=== PATIENT | male | born 1935 | race Caucasian/White ===

== ENCOUNTER 2018-01-19 07:47 | Emergency (ER) | payer OTHER, MEDICARE ==
[~2018-01-19] VITALS: Ht 162.6 cm; Wt 76.6 kg
[~2018-01-19 07:47] MED LIST: AMBIEN5 MG PO; ANTIVERT25 MG PO; ASPIR-LOW81 M1 PO; ASPIRIN BUFFER325 M1 PO; ASPIRIN81 M1 PO; ASPIRIN81 M2 PO; ATORVASTATIN CA20 MG PO; AUGMENTIN875 MG PO; CATAPRES0.1 MG PO; DILAUDID2 MG PO; DOXYCYCLINE HY100 MG PO; HYDROCHLOROTH12.5 M3 PO; LEVOXYL25 MCG PO; LEVOXYL50 MCG PO; LOTENSIN10 MG PO; LOTENSIN20 M2 PO; NORVASC10 MG PO; NORVASC5 MG PO; PERCOCET 5/31 TABLET PO; PROAIR HFA8.5 GM IH; SKELAXIN800 MG PO; TENORMIN25 MG PO; TENORMIN50 MG PO; Tenormin PO; VALIUM2 MG PO; VALIUM5 MG PO; XARELTO20 MG PO; ZOCOR10 MG PO; ZOFRAN4 MG PO; Zocor PO
[2018-01-19] MEDS ORDERED: ZYRTEC10 M2 PO (09:01)
[2018-01-19] MEDS ORDERED: ATARAX10 MG PO (09:01)
[2018-01-19 09:12] VITALS: BP 155/72
== END 2018-01-19 09:12 | disposition home or self-care (01) ==
LOC: EME 07:47
DX: L30.9 Dermatitis, unspecified (principal); L29.9 Pruritus, unspecified; L53.9 Erythematous condition, unspecified; Z87.2 Personal history of diseases of the skin and subcutaneous tissue; I10 Essential (primary) hypertension; E78.5 Hyperlipidemia, unspecified; J45.909 Unspecified asthma, uncomplicated; I25.2 Old myocardial infarction; F32.9 Major depressive disorder, single episode, unspecified; Z79.82 Long term (current) use of aspirin; Z95.5 Presence of coronary angioplasty implant and graft; Z90.49 Acquired absence of other specified parts of digestive tract; Z88.5 Allergy status to narcotic agent; J30.81 Allergic rhinitis due to animal (cat) (dog) hair and dander
CPT/HCPCS: 99281; 99283

== ENCOUNTER 2018-05-13 09:48 | Emergency (ER) | payer OTHER ==
[~2018-05-13] VITALS: Ht 162.6 cm; Wt 75.2 kg
[~2018-05-13 09:48] MED LIST changes: +ATARAX10 MG PO; +ZYRTEC10 M2 PO
[2018-05-13 10:32] LABS: HEMATOCRIT 38.3 % (38.0-50.0); MCHC 33.9 G/DL (30.0-36.0); MCV 88.2 FL (86-99); PLATELET COUNT 204 K/uL (156-360); RBC DIS.WIDTH-CV 13.7 % (11.8-14.6); RBC DIS.WIDTH-SD 43.9 % (39-53); RED BLOOD COUNT 4.34 M/uL (4.00-5.50); WHITE BLOOD COUNT 5.9 K/uL (4.1-10.2)
[2018-05-13 10:44] LABS: CHLORIDE 105 mEq/L (99-109); POTASSIUM 4.2 mEq/L (3.7-5.4); SODIUM 139 mEq/L (136-147)
[2018-05-13 10:47] LABS: GLUCOSE 110 mg/dL (70-99); TOTAL PROTEIN 7.1 g/dL (6.4-8.3)
[2018-05-13 10:49] LABS: TOTAL BILIRUBIN 0.8 mg/dL (0.0-1.0)
[2018-05-13 10:50] LABS: APPEARANCE CLEAR ((CLEAR)); BILIRUBIN NEGATIVE; BLOOD SMALL; COLOR YELLOW ((YELLOW)); GLUCOSE (STRIP) NEGATIVE; KETONES NEGATIVE; LEUKOCYTES NEGATIVE; NITRITE NEGATIVE; PROTEIN (STRIP) NEGATIVE; SPECIFIC GRAVITY 1.013 (1.000-1.030); UROBILINOGEN 0.2 MG/DL (0.2-1.0)
[2018-05-13 10:50] LABS: ALKALINE PHOSPHATASE 94 IU/L (3-129); CREATININE 0.8 mg/dL (0.6-1.3); GFR ESTIMATE (CALCULATED) > 59 mL/min/ (58.99-99999)
[2018-05-13 10:51] LABS: UREA NITROGEN (BUN) 14 mg/dL (9-23)
[2018-05-13 10:52] LABS: AST (GOT) 18 IU/L (2-34)
[2018-05-13 10:53] LABS: ALT (GPT) 14 IU/L (3-49)
[2018-05-13 10:54] LABS: LIPASE 39 U/L (1.0-51.0)
[2018-05-13 10:55] LABS: BACTERIA NONE SEEN /HPF; EPITHELIAL CELLS RARE /HPF; MUCUS NONE SEEN /LPF; WHITE BLOOD CELLS 0-5 /HPF (0-5)
[2018-05-13 11:35] VITALS: BP 134/65
== END 2018-05-13 11:36 | disposition home or self-care (01) ==
LOC: EME 09:48
PROVIDERS: Emergency Medicine
DX: R10.11 Right upper quadrant pain (principal); I10 Essential (primary) hypertension; J45.909 Unspecified asthma, uncomplicated; E78.5 Hyperlipidemia, unspecified; I25.10 Atherosclerotic heart disease of native coronary artery without angina pectoris; I25.2 Old myocardial infarction; F32.9 Major depressive disorder, single episode, unspecified; Z95.5 Presence of coronary angioplasty implant and graft; Z79.82 Long term (current) use of aspirin
CPT/HCPCS: 80053; 81003; 83690; 85027; 99281; 99284